=== PATIENT | male | born 1980 | race Two or more races ===

== ENCOUNTER 2019-04-19 18:00 | Emergency (ER) | payer OTHER ==
[2019-04-19 20:36] VITALS: BP 230/128
[2019-04-19] MEDS ORDERED: OXYCODONE-ACETAMINOPHEN 5-325 MG TABLET PO ONE (20:39)
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
== END 2019-04-20 09:02 | disposition home or self-care (01) ==
LOC: ER 18:00
DX: M25.512 Pain in left shoulder (principal); R55 Syncope and collapse; V49.40XA Driver injured in collision with unspecified motor vehicles in traffic accident, initial encounter; I10 Essential (primary) hypertension
CPT/HCPCS: 70450; 72125; 72128; 99284